=== PATIENT | male | born 2000 ===

== ENCOUNTER 2021-12-25 21:16 | Emergency (ER) | payer OTHER ==
[2021-12-25] MEDS ORDERED: Sodium Chloride 0.9% 10 ML Syringe FLUSH PRN (21:22)
[2021-12-25] MEDS ORDERED: Sodium Chloride 0.9% 1,000 ML IV STA (21:23)
[2021-12-25] MEDS ORDERED: Acetaminophen 325 MG Tab PO ONE (21:46)
[2021-12-25 22:11] LABS: CORONAVIRUS COVID-19 NAA POSITIVE (NEGATIVE)
== END 2021-12-25 23:05 | disposition home or self-care (01) ==
LOC: JD.ED 21:16
DX: U07.1 COVID-19 (principal); Z88.8 Allergy status to other drugs, medicaments and biological substances
CPT/HCPCS: 0240U; 36415; 71045; 80053; 81001; 85025; 86140; 96360; 99284; A9270; J3490; J7030; 99282